=== PATIENT | female | born 1955 | race Caucasian/White ===

== ENCOUNTER 2021-06-19 09:37 | Day surgery (SDC) | payer MEDICARE, MEDICAID ==
[2021-06-19] VITALS (11 sets, daily range): BP systolic 119–162; BP diastolic 67–106; PULSE 81–102; TEMP 98.1
[~2021-06-19] VITALS: Ht 149.9 cm; Wt 84.5 kg
[2021-06-19 10:30] LABS: HEMATOCRIT 43.1 % (37.0-47.0); HEMOGLOBIN 13.6 g/dl (12.5-16.0); MEAN CELL VOLUME 86 fl (80.0-100.0); MEAN CORPUSCULAR HEMOGLOBIN 27 pg (27.0-31.0); MEAN CORPUSCULAR HGB CONC 32 g/dl (33.0-37.0); MEAN PLATELET VOLUME 9.8 fl (7.4-10.4); PLATELET COUNT 290 K/mm3 (130-400); RED BLOOD COUNT 4.99 M/mm3 (4.10-5.30); REDCELL DISTRIBUTION WIDTH-CV 14.8 % (11.5-14.5)
[2021-06-19 10:40] LABS: CREATININE, serum 1.6 (0.52-1.25); POTASSIUM 4.7 mmol/L (3.4-5.0)
[2021-06-19 11:06] LABS: INR 0.9 (0.8-3.0); PROTHROMBIN TIME 10.3 SECONDS (9.7-12.8)
[2021-06-19] MEDS ORDERED: PERCOCET 325 MG1 TAB PO (11:07)
[2021-06-19] MEDS ORDERED: TYLENOL 8 HR PO (11:07)
[2021-06-19 11:09] LABS: PARTIAL THROMBOPLASTIN TIME 31.7 SECONDS (26.0-37.0)
[2021-06-19] MEDS ORDERED: PULMICORT180 MCG/Ac IH (11:25)
[2021-06-19] MEDS ORDERED: ALBUTEROL0.83 MG/ML IH (11:26)
[2021-06-19] MEDS ORDERED: CYMBALTA 60MG60 MG PO (11:27)
[2021-06-19] MEDS ORDERED: VENTOLIN0.09 MG IH (11:27)
[2021-06-19] MEDS ORDERED: MONODOX100 PO (11:27)
[2021-06-19] MEDS ORDERED: REGLAN 5MG T5 MG/TAB PO (11:27)
[2021-06-19] MEDS ORDERED: PREDNISONE 5MG5 MG PO (11:28)
[2021-06-19] MEDS ORDERED: PRIL40 PO (11:28)
[2021-06-19] MEDS ORDERED: MASON NATURAL2000 IU PO (11:28)
[2021-06-19] MEDS ORDERED: K-DUR 10 MEQ T10 MEQ PO (11:37)
[2021-06-19] MEDS ORDERED: COZAAR100 MG PO (11:37)
[2021-06-19] MEDS ORDERED: ASPIRIN E.C. 8181 MG PO (11:37)
[2021-06-19] MEDS ORDERED: NATURAL MAGNES200 MG PO (11:38)
[2021-06-19] MEDS ORDERED: LIPITOR20 MG PO (11:38)
[2021-06-19] MEDS ORDERED: LASIX 20MG TABL20 MG PO (11:38)
[2021-06-19] MEDS ORDERED: LOPRESSOR 550 MG/TAB PO (11:39)
[2021-06-19] MEDS ORDERED: NEURONTIN400 MG/CAP PO (11:39)
[2021-06-19] MEDS ORDERED: ELIQUIS 5MG PO (11:39)
[2021-06-19] MEDS ORDERED: IMDUR 30MG30 MG/TAB PO (13:45)
--- NOTE | 2021-06-19 16:30 | NUR ---
Pt assisted up to sitting position. No dizziness or complaint with activity. Pt ambulates to restroom with steady gait. Rt groin puncture site remains soft to palpation, and dressing clean, dry and intact. DC instructions reviewed with pt and . Both express understanding. INT DC'd with catheter intact. Pt will be assisted out by wheelchair by ABDIRASHID Ocasio once dressed.
== END 2021-06-19 16:30 | disposition home or self-care (01) ==
LOC: COL.CAR 09:37
PROVIDERS: Internal Medicine Interventional Cardiology
DX: R06.02 Shortness of breath (principal); R94.39 Abnormal result of other cardiovascular function study; I10 Essential (primary) hypertension; J44.9 Chronic obstructive pulmonary disease, unspecified; I50.9 Heart failure, unspecified; E78.5 Hyperlipidemia, unspecified; G47.10 Hypersomnia, unspecified; Z79.899 Other long term (current) drug therapy; Z79.82 Long term (current) use of aspirin; Z79.01 Long term (current) use of anticoagulants
CPT/HCPCS: C1760; C1894; J1644; J1940; J2250; J3010